=== PATIENT | female | born 1960 | race Caucasian/White ===

== ENCOUNTER 2021-04-13 11:01 | Emergency (ER) | payer OTHER, SELFPAY ==
[2021-04-13 11:12] VITALS: BP 162/91; PULSE 75; RESP 18; TEMP 36.4; O2SAT 98
--- NOTE | 2021-04-13 11:27 | W.ED.GENAD ---
Discharge Plan Disposition Patient Disposition: HOME Condition: Stable Discharge Details Clinical Impression: Pain, dental ED Provider: Jose Stephens Home Meds and New Rx's Prescriptions: Continued cyclobenzaprine 10 mg Tablet 10 mg PO TID RF: 0 lamotrigine 200 mg Tablet 200 mg PO BID RF: 0 donepezil 5 mg Tablet 7.5 mg PO DAILY RF: 0 ondansetron HCl 8 mg Tablet 8 mg PO PRN PRNRF: 0 aspirin 81 mg Tablet,Delayed Release (Dr/Ec) 81 mg PO DAILY RF: 0 lamotrigine [Lamictal] 25 mg Tablet 25 mg PO DAILY RF: 0 diltiazem HCl [Cardizem] 120 mg Tablet 240 mg PO QID RF: 0 hyoscyamine sulfate 0.125 mg Tablet 0.125 mg PO QID RF: 0 lansoprazole 30 mg Capsule,Delayed Release(Dr/Ec) 30 mg PO BID RF: 0 lorazepam [Ativan] 1 mg Tablet 1 mg PO BID PRNRF: 0 bupropion HCl 150 mg Tablet Extended Release 24 Hr 150 mg PO QID RF: 0 Mertazepin 5 mg PO QID RF: 0 Discharge Instructions Additional Instructions: you can take 1000mg tylenol and 600mg ibuprofen every 6 hours as needed do not drink alcohol or drive if you take the oxycodone if you feel more ill, have fevers or difficulty breathing or inability to swallow liquids return to the emergency department Medical Decision Making 60 yo female comes in with dental pain. She has been seeing [facility] and has had the pain for months, has had two rounds of augmentin and currently on azithromycin per patient but still has left lower posterior molar pain. she is in no distress on exam, has severely eroded posterior left molar that has no abscess on exam and normal oropharynx, no submandibular swelling, no pain over the hyoid. No findings to suggest ludwigs or retropharyngeal abscess. Discussed with patient likely has pain due to the erosion. Offered topical anesthetic and discussed with her risks/benefits of opiates for pain, she would like to have a small amount just for bedtime which I feel is reasonable. ADvised to follow up with dentist and return precautions given Differential Diagnosis Differential Diagnosis: caries, dental erosion, infection HPI General Mode of arrival: ambulatory. Date/Time Provider Initiated Documentation: 04/13/21 11:03. Limitations to Documentation: no limitations. Information obtained by: patient. History of Present Illness 60 year old F presents to the emergency department with the chief complaint of dental pain, described as moderate, Quality is described as aching, Patient reports no radiation. and it has been constant. No relieving factors improve symptom(s), No exacerbating factors reported . Patient notes no other symptoms.. Related Data Home Medications Medication Instructions Recorded Confirmed Mertazepin 5 mg PO QID 04/13/21 04/13/21 aspirin 81 mg PO DAILY 04/13/21 04/13/21 bupropion HCl 150 mg PO QID 04/13/21 04/13/21 cyclobenzaprine 10 mg PO TID 04/13/21 04/13/21 diltiazem HCl [Cardizem] 240 mg PO QID 04/13/21 04/13/21 donepezil 7.5 mg PO DAILY 04/13/21 04/13/21 hyoscyamine sulfate 0.125 mg PO QID 04/13/21 04/13/21 lamotrigine 200 mg PO BID 04/13/21 04/13/21 lamotrigine [Lamictal] 25 mg PO DAILY 04/13/21 04/13/21 lansoprazole 30 mg PO BID 04/13/21 04/13/21 lorazepam [Ativan] 1 mg PO BID PRN 04/13/21 04/13/21 ondansetron HCl 8 mg PO PRN PRN 04/13/21 04/13/21 Allergies Allergy/AdvReac Type Severity Reaction Status Date / Time No Known Allergies Allergy Unverified 04/13/21 11:15 General Stated Complaint: DentalOral BRAN: 4 Review of Systems All systems reviewed & are unremarkable except as noted in HPI and below Constitutional Constitutional: Denies chills, Denies fever(s) and Denies weakness Cardiovascular Cardiovascular: Denies chest pain and Denies dyspnea Respiratory Respiratory: Denies cough and Denies dyspnea Gastrointestinal Gastrointestinal: Denies abdominal pain, Denies nausea and Denies vomiting Musculoskeletal Musculoskeletal: Denies joint swelling Neurologic Neurologic: Denies weakness Psychiatric Psychiatric: Denies depression PFSH Social History Smoking/Tobacco Use Status: Never Smoking risk assessment performed?: Yes Alcohol Intake: current Alcohol Intake frequency: 0-2 drinks per day Drug use: Never Substance use type: does not use Exam Const General: no acute distress Orientation: alert HENMT Head: normal to inspection Ears: external ears normal General nose exam: external nose normal Mouth: moist mucous membranes Eyes General: appearance normal, both eyes and all related structures Neck Neck: normal visual inspection Resp Effort & Inspection: normal respiratory effort and able to speak in complete sentences Cardio Rate: regular rate Skin General skin exam: no rashes or lesions noted Neuro General: patient alert and patient oriented x3 Extrem General: normal to inspection Psych Mental Status: mental status grossly normal Course Vital Signs Vital signs: Vital Signs Temperature 36.4 C L 04/13/21 11:12 Pulse 75 04/13/21 11:12 Respiratory Rate 18 04/13/21 11:12 Blood Pressure 162/91 H 04/13/21 11:12 Pulse Oximetry 98 04/13/21 11:12 Temperature 36.4 C L 04/13/21 11:12 Temperature Source Temporal Artery Scan 04/13/21 11:12 Pulse 75 04/13/21 11:12 Respiratory Rate 18 04/13/21 11:12 Respiratory Effort Non-Labored 04/13/21 11:17 Blood Pressure 162/91 H 04/13/21 11:12 Blood Pressure Position Sitting 04/13/21 11:12 Pulse Oximetry 98 04/13/21 11:12 Oxygen Delivery Method Room Air 04/13/21 11:12 Oxygen Flow Rate 0 04/13/21 11:12 Pain Level 9 04/13/21 11:12
[2021-04-13] MEDS: Benzocaine 20% Gel 30 GM JAR MM (11:44)
== END 2021-04-13 11:41 | disposition home or self-care (01) ==
LOC: ER 11:53
PROVIDERS: Emergency Provider Emergency Medicine
DX: R68.84 Jaw pain (principal)
CPT/HCPCS: 99283